=== PATIENT | male | born 1955 | race Caucasian/White ===

== ENCOUNTER 2017-01-07 16:29 | Emergency (ER) | payer OTHER ==
[2017-01-07 17:45] LABS: BASOPHIL 0.2 % (0-2); EOSINOPHIL 0.6 % (0-5); HCT 44.3 % (42.0-52.0); HGB 15.4 g/dl (13.2-18.0); LYMPHOCYTE 14.6 % (15-48); MCH 29.6 pg (25.0-31.0); MCHC 34.8 g/dL (32.0-36.0); MCV 85.2 fL (78.0-100.0); MPV 9.8 fL (6.0-9.5); NEUTROPHIL 76.6 % (41-80); PLT 335 K/uL (150-400); RDW 12.7 % (11.5-14.0); WBC 9.8 K/uL (4.0-10.5)
[2017-01-07 17:58] LABS: ALBUMIN 4.7 g/dL (3.4-4.8); BILIRUBIN - TOTAL 0.3 mg/dL (0.1-1.0); CREATININE 0.8 mg/dL (0.7-1.2); GLOBULIN (CALCULATION) 2.6 g/dL (2.2-4.2); POTASSIUM 4.7 mmol/L (3.5-5.1); TOTAL PROTEIN 7.3 g/dL (6.4-8.3)
[2017-01-07 17:59] LABS: ACETAMINOPHEN (TYLENOL) < 5.0 ug/mL (10.0-30.0); ALCOHOL (ETOH) MEDICAL NONE DETECTED; SALICYLATE < 6 ug/mL (0-300)
[2017-01-07 18:03] LABS: LACTIC ACID 1.9 mmol/L (0.5-2.2)
[2017-01-07 18:26] LABS: BILIRUBIN NEGATIVE (NEGATIVE); BLOOD NEGATIVE Ery/uL (NEGATIVE); CLARITY SLIGHTLY HAZY (CLEAR); COLOR STRAW (YELLOW); GLUCOSE (U) 3+ mg/dL (NORMAL); KETONE (U) NEGATIVE (NEGATIVE); LEUKOCYTES NEGATIVE Leu/uL (NEGATIVE); NITRITE NEGATIVE (NEGATIVE); PROTEIN NEGATIVE (NEGATIVE); UROBILINOGEN 0.2 mg/dL (0.2-1.0)
[2017-01-07 18:51] LABS: AMPHETAMINES NEGATIVE (NEGATIVE); BARBITURATES NEGATIVE (NEGATIVE); BENZODIAZEPINES NEGATIVE (NEGATIVE); COCAINE NEGATIVE (NEGATIVE); MARIJUANA (THC) NEGATIVE (NEGATIVE); METHADONE NEGATIVE (NEGATIVE); TRICYCLIC ANTIDEPRESSANT NEGATIVE (NEGATIVE)
== END 2017-01-07 19:18 | disposition home or self-care (01) ==
LOC: FER 16:29
PROVIDERS: Internal Medicine
DX: F41.9 Anxiety disorder, unspecified (principal); F43.9 Reaction to severe stress, unspecified; R82.90 Unspecified abnormal findings in urine; I10 Essential (primary) hypertension; E11.9 Type 2 diabetes mellitus without complications; E78.5 Hyperlipidemia, unspecified; Z79.84 Long term (current) use of oral hypoglycemic drugs; Z79.899 Other long term (current) drug therapy
CPT/HCPCS: 36415; 71010; 80053; 80305; 81003; 83605; 84484; 85025; 85379; 87088; 93005; G0480; J2060

== ENCOUNTER 2021-08-04 07:49 | Emergency (ER) | payer OTHER ==
[~2021-08-04 07:49] MED LIST: AMLODIPINE BESY10 MG PO; ASPIRIN EC81 MG PO; BASAGLAR K100 UNIT/1 SC; FARXIGA10 MG PO; GLIPIZIDE 5 MG (5 MG PO; LIPITOR20 MG PO; MELOXICAM15 MG PO; PRINIVIL20 MG PO; TRULICITY1.5 MG/0.5 SC; VOLTAREN **OUT50 MG PO; ZOCOR20 MG PO
[2021-08-04] MEDS ORDERED: NORCO 5-325 TA1 EACH PO (11:46)
== END 2021-08-04 12:20 | disposition home or self-care (01) ==
LOC: FER 07:49
DX: M23.91 Unspecified internal derangement of right knee (principal); I10 Essential (primary) hypertension; E11.9 Type 2 diabetes mellitus without complications; Z79.84 Long term (current) use of oral hypoglycemic drugs; Z79.82 Long term (current) use of aspirin; Z79.899 Other long term (current) drug therapy
CPT/HCPCS: 73564